=== PATIENT | female | born 1995 | race Caucasian/White ===

== ENCOUNTER 2024-08-31 18:18 | Emergency (ER) | payer MEDICAID ==
[~2024-08-31] VITALS: Ht 162.6 cm; Wt 136.1 kg
[2024-08-31 19:40] LABS: APPEARANCE,URINE SLIGHTLY CLOUDY (CLEAR); BILIRUBIN,URINE NEGATIVE (NEGATIVE); BLOOD, URINE 3+ Ery/uL (NEGATIVE); COLOR,URINE YELLOW (YELLOW); KETONES,URINE NEGATIVE (NEGATIVE); LEUKOCYTE ESTERASE ,URINE NEGATIVE (NEGATIVE); NITRITE, URINE NEGATIVE (NEGATIVE); PROTEIN,URINE NEGATIVE (NEGATIVE); UGLUCOSE 2+ mg/dL (NEGATIVE); UROBILINOGEN,URINE 0.2 EU/dL (0.2)
[2024-08-31 19:47] LABS: PREGNANCY TEST URINE QUAL NEGATIVE (NEGATIVE)
[2024-08-31 19:48] LABS: RBC,URINE 51-80 /HPF (0-2); WBC,URINE 0-2 /HPF (0-3)
[2024-08-31 19:50] LABS: ADD URINE CULTURE NO; BACTERIA,URINE None seen /HPF (None Seen)
[2024-08-31] MEDS ORDERED: GABA-532 PO (20:09)
[2024-08-31 20:18] VITALS: BP 134/81; TEMP 98; O2SAT 99
== END 2024-08-31 20:18 | disposition home or self-care (01) ==
LOC: ER 18:29
DX: R30.0 Dysuria (principal)
CPT/HCPCS: 81001; 84703-TC; 87086-TC